=== PATIENT | male | born 1945 | race Caucasian/White ===

== ENCOUNTER 2018-02-13 10:46 | Emergency (ER) | payer OTHER ==
[2018-02-13 10:53] VITALS: BP 143/73; BMI 29.3
--- NOTE | 2018-02-13 11:49 | DR.AMS ---
HPI - Time Seen Time seen: 11:30 - PCP Primary Care Physician: JONEL CAROLINA - Complaint Cheif Complaint Doctors Comments: Confusion since last night. He is better now than earlier this a.m. He has esophageal cirrhosis and had TIPPS done 2 weeks ago at [facility] in [place], [place]. He has had no ETOH consumption in 12 yrs. Chief Complaint:: PT'S FAMILY C/O THAT LAST NIGHT PT WAS HAVING PROBLEMS WITH COMMUNICATION AND WHEN U TALKED TO HIM HE WOULD STAND THERE.. AND THAT WHEN PT WAS ASKED TO EAT HE ACTED THOUGHT HE DID NOT KNOW WHAT TO DO AND HE HAS BEEN CONFUSED ..BR Self Treatment fo Chief Complaint: FAMILY C/O THIS IS NOT LIKE HIM AND FAMILY CALLED PA FOR JONEL CAROLINA AND SHE TOLD THEM TO COME TO ER .. BR - Reviewed Nurses Notes Reviewed: Yes - Source History Provided: Patient - Mode of Arrival Mode of Arrival: Ambulatory - Timing Onset of Chief Complaint: 02/12/18 Symptom Onset: Known Onset of Symptoms Start Date: 02/12/18 Onset of Symptoms Start Time: 10:30 PMH - PMH Past Medical History: Yes Past Medical History: GERD Past Medical History Comment: ESOPHAGEAL VARISES,, BR , LIVER FAILURE, Past Surgical History: Yes Past Surgical History Comment: TIPPS, - Family History History of Family Medical Conditions: No - Social History Does patient currently use any type of tobacco product: No Have you used tobacco products in the last 12 months: No Type of Tobacco Use: None Does any household member use tobacco: No Alcohol Use: None Do you use any recreational Drugs:: No Lives With: Family Lives Where: Home - infectious screening In the last 2 months have you had wt loss of >10#?: NO Have you had fever, night sweats or hemotysis?: No Have you traveled outside the country in the last 6 months?: No Isolation: Standard ROS - Review of Systems Constitutional: No Symptoms Reported Eyes: No Symptoms Reported ENTM: No Symptoms Reported Respiratoy: No Symptoms Reported Cardiovascular: No Symptoms Reported Gastrointestinal/Abdominal: No Symptoms Reported Genitourinary: No Symptoms Reported Neurological: Other (confusion ) Musculoskeletal: No Symptoms Reported Integumentary: No Symptoms Reported Hematologic/Lymphatic: No Symptoms Reported Endocrine: No Symptoms Reported Psychiatric: No Symptoms Reported All Other Systems: Reviewed and Negative PE - Vitals Vital Signs: Pulse Resp BP Pulse Ox 02/13/18 10:48 99 H 18 143/73 100 - General Limitations: Language Barrier General Appearance: Alert, In No Apparent Distress - Head Head Exam: Normal Inspection - Eyes Eye exam: Normal Appearance - ENT ENT Exam: Normal Exam - Neck Neck Exam: Normal Inspection - Chest Chest Inspection: Normal Inspection - Respiratory Respiratory Exam: Normal Lung Sounds Bilat - Cardiovascular Cardiovascular Exam: Regular Rate, Normal Rhythm, +S1, +S2 - Abdominal Exam Abdominal Exam: Normal Inspection, Normal Bowel Sounds, Soft - Extremities Extremities Exam: Normal Inspection, Full ROM - Back Back Exam: Normal Inspection, Full ROM - Neurological Neurological Exam: Alert, CN II-XII Intact, Normal Gait Patient Oriented To: Person, Place Speech: Fluid Speech - Psychological Psychiatric Exam: Normal Affect, Normal Mood - Skin Skin Exam: Warm, Dry, Intact, Normal Color Course - Reevaluation 1st: Improved - Education/Counseling Education/Counseling: Patient, Family, Education, Counseling Educated On: Treatment, Diagnosis, Prognosis, Needs for Follow Up ROR - Labs Reviewed Result Diagrams: 02/13/18 11:56 02/13/18 11:56 Laboratory: WBC 6.9 X10^3/uL (3.6-10.0) 02/13/18 11:56 RBC 3.57 X10^6/uL (4.7-6.0) L 02/13/18 11:56 Hgb 10.1 g/dL (13.5-18.0) L 02/13/18 11:56 Hct 30.3 % (42.0-54.0) L 02/13/18 11:56 MCV 85.0 fL (80.0-100.0) 02/13/18 11:56 MCH 28.2 pg (27.0-34.0) 02/13/18 11:56 MCHC 33.2 g/dL (33.0-35.0) 02/13/18 11:56 RDW 16.9 % (11.6-16.5) H 02/13/18 11:56 Plt Count 176 X10^3/uL (150.0-450.0) 02/13/18 11:56 MPV 7.3 fL (7.4-11.0) L 02/13/18 11:56 Neut % (Auto) 67.2 % (42.0-75.0) 02/13/18 11:56 Lymph % (Auto) 22.5 % (21.0-51.0) 02/13/18 11:56 [place] % (Auto) 7.4 % (0.0-13.0) 02/13/18 11:56 Eos % (Auto) 2.3 % (0.9-2.9) 02/13/18 11:56 Baso % (Auto) 0.6 % (0.2-1.0) 02/13/18 11:56 Neut # (Auto) 4.7 x10^3/uL (2.2-4.8) 02/13/18 11:56 Lymph # (Auto) 1.6 X10^3/uL (1.3-2.9) 02/13/18 11:56 [place] # (Auto) 0.5 x10^3/uL (0.3-0.8) 02/13/18 11:56 Eos # (Auto) 0.2 x10^3/uL (0.0-0.2) 02/13/18 11:56 Baso # (Auto) 0.0 X10^3/uL (0.0-0.1) 02/13/18 11:56 Absolute Nucleated RBC 0.0 /100WBC 02/13/18 11:56 Sodium 142 mmol/L (136-145) 02/13/18 11:56 Corrected Sodium 143 mmol/L (136-145) 02/13/18 11:56 Potassium 4.3 mmol/L (3.5-5.1) 02/13/18 11:56 Chloride 107 mmol/L (98-107) 02/13/18 11:56 Carbon Dioxide 24.8 mmol/L (21-32) 02/13/18 11:56 BUN 15 mg/dL (7-18) 02/13/18 11:56 Creatinine 1.14 mg/dL (0.70-1.30) 02/13/18 11:56 Est GFR (MDRD) Af Amer > 60 (>60) 02/13/18 11:56 Est GFR (MDRD) Non-Af > 60 (>60) 02/13/18 11:56 Glucose 134 mg/dL (65-99) H 02/13/18 11:56 Calcium 9.1 mg/dL (8.5-10.1) 02/13/18 11:56 Corrected Calcium TNP 02/13/18 11:56 Total Bilirubin 0.60 mg/dL (0.2-1.0) 02/13/18 11:56 AST 49 Units/L (15-37) H 02/13/18 11:56 ALT 44 Units/L (12-78) 02/13/18 11:56 Alkaline Phosphatase 118 Units/L (46-116) H 02/13/18 11:56 Ammonia 30 umol/L (11-32) 02/13/18 11:56 Total Protein 8.8 g/dL (6.4-8.2) H 02/13/18 11:56 Albumin 3.4 g/dL (3.4-5.0) 02/13/18 11:56 Globulin 5.4 g/dL (2.5-4.5) H 02/13/18 11:56 Albumin/Globulin Ratio 0.6 Ratio (1.1-2.1) L 02/13/18 11:56 - XRAY XRAY Interpreted by: Radiologist (chronic white matter changes. no acute intracranial abnormality noted.) - Diagnosis Discharge Problem: Confusion - Discharge Plan Disposition: 01 HOME, SELF-CARE Condition: Stable - Follow ups/Referrals Follow ups/Referrals: OXANA REMY [Primary Care Provider] - 3 days - Instructions Instructions: Confusion
[2018-02-13 12:04] LABS: BASOPHILS % (AUTO) 0.6 % (0.2-1.0); EOSINOPHILS # (AUTO) 0.2 x10^3/uL (0.0-0.2); EOSINOPHILS % (AUTO) 2.3 % (0.9-2.9); HEMATOCRIT 30.3 % (42.0-54.0); HEMOGLOBIN 10.1 g/dL (13.5-18.0); LYMPHOCYTES # (AUTO) 1.6 X10^3/uL (1.3-2.9); LYMPHOCYTES % (AUTO) 22.5 % (21.0-51.0); MEAN CORPUSCULAR HEMOGLOBIN 28.2 pg (27.0-34.0); MEAN CORPUSCULAR HGB CONC 33.2 g/dL (33.0-35.0); MEAN PLATELET VOLUME 7.3 fL (7.4-11.0); MONOCYTES # (AUTO) 0.5 x10^3/uL (0.3-0.8); MONOCYTES % (AUTO) 7.4 % (0.0-13.0); NEUTROPHILS # (AUTO) 4.7 x10^3/uL (2.2-4.8); NEUTROPHILS % (AUTO) 67.2 % (42.0-75.0); PLATELET COUNT 176 X10^3/uL (150.0-450.0); RED BLOOD COUNT 3.57 X10^6/uL (4.7-6.0); RED CELL DISTRIBUTION WIDTH 16.9 % (11.6-16.5); WHITE BLOOD COUNT 6.9 X10^3/uL (3.6-10.0)
[2018-02-13 12:12] LABS: AMMONIA 30 umol/L (11-32)
[2018-02-13 12:16] LABS: ALANINE AMINOTRANSFERASE 44 Units/L (12-78); ALBUMIN 3.4 g/dL (3.4-5.0); ALKALINE PHOSPHATASE 118 Units/L (46-116); ASPARTATE AMINO TRANSFERASE 49 Units/L (15-37); BLOOD UREA NITROGEN 15 mg/dL (7-18); CALCIUM 9.1 mg/dL (8.5-10.1); CARBON DIOXIDE 24.8 mmol/L (21-32); CHLORIDE 107 mmol/L (98-107); COR NA(FOR HYPERGLY) 143 mmol/L (136-145); CREATININE 1.14 mg/dL (0.70-1.30); SODIUM 142 mmol/L (136-145); TOTAL PROTEIN 8.8 g/dL (6.4-8.2); eGFR BLACK RACES > 60 (>60); eGFR NON BLACK RACES > 60 (>60)
--- NOTE | 2018-02-13 12:38 | CT ---
History: Altered mental status Technique: Noncontrast CT brain Multiple contiguous axial CT images were obtained from skullbase to vertex without IV contrast. Sagit yanci and coronal reformatted images were reconstructed. Automated exposure control (AEC) was utilized to adjust the MA and/or kV according to patient size. Comparison:NONE Findings: There is no acute intracranial hemorrhage demonstrated. 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 There is no mass or mass effec t. There is no abnormal extra-axial fluid collection. Ventricles are normal in size, shape and positi on. Calcification noted within the choroid plexus in the temporal horns of the lateral ventricles. The included portions of the mastoid air cells and paranasal sinuses appear grossly clear. No acute o sseous abnormality demonstrated. Impression: 1. No acute intracranial abnormality demonstrated. Chronic appearing white matter changes are noted a s discussed above. If there is clinical concern for acute ischemia, further evaluation with MRI of th e brain would be recommended, if not contraindicated. Reported By:
== END 2018-02-13 13:05 | disposition home or self-care (01) ==
LOC: ER 10:59
DX: R41.0 Disorientation, unspecified (principal); R41.82 Altered mental status, unspecified
CPT/HCPCS: 36415; 70450; 80053; 82140; 85025; 99282; 99284